=== PATIENT | female | born 1980 | race Caucasian/White ===

== ENCOUNTER 2017-01-25 06:03 | Day surgery (SDC) | payer OTHER ==
[2017-01-25] MEDS ORDERED: Lactated Ringers 1,000 ML IV ONE ×2 (07:06→08:22)
[2017-01-25] MEDS ORDERED: Lactated Ringers 1,000 ML IV SCH (07:30)
[2017-01-25] MEDS ORDERED: Ketamine HCl 50 MG/ML IJ ONE (08:00)
[2017-01-25] MEDS ORDERED: BREVIBLOC 100 MG/10 ML IV ONE (08:00)
[2017-01-25] MEDS ORDERED: DIPRIVAN 200 MG/20 ML IV ONE (08:00)
--- NOTE | 2017-01-25 08:46 | OP ---
SURGERY DATE/TIME: 01/25/2017 0748 PREOPERATIVE DIAGNOSIS: Rectal bleeding. POSTOPERATIVE DIAGNOSIS: Normal colon. PROCEDURE: Colonoscopy. SURGEON: Dr. Manuel. ANESTHESIA: Medications given by anesthesia department. HISTORY: The patient is a 36 year-old white female patient who reports she has been having problems with abdominal pain, rectal bleeding. The patient reports no significant change in bowel habits. She reports last time she had blood in the stool was two weeks ago. It was mixed in with the stool. The patient was felt the need to have endoscopic evaluation. She was appraised of the risks of the procedure including the risk of perforation, phlebitis, untoward reaction to medication, bleeding, and missed lesions. The patient verbalized her understanding and desired to have the procedure performed. DESCRIPTION OF PROCEDURE: The patient was given the medications by the anesthesia department. She had continuous pulse oximetry, ECG monitoring, intermittent blood pressure monitoring, and tidal CO2 monitoring during the examination. She was placed in the left lateral decubitus position. A digital rectal examination was performed and revealed normal anal sphincter tone and no masses, no hemorrhoids or fissures were felt. The flexible Olympus pediatric colonoscope was used to intubate the rectum. A view of the colon was developed sequentially to the cecum including a short distance into the terminal ileum. Upon insertion and withdrawal, including a retroflex view in the rectum, no mucosal lesions were encountered. The scope was removed from the patient who tolerated the procedure well and was sent back to OP recovery in good condition. The prep was noted to be good.
[2017-01-25 09:44] VITALS: O2SAT 99
[2017-01-25 09:46] VITALS: BP 122/69; PULSE 91
== END 2017-01-25 09:35 | disposition home or self-care (01) ==
LOC: SDC 06:03
PROVIDERS: ATTEND Family Medicine
PROC: 0DJD8ZZ Inspection of Lower Intestinal Tract, Via Natural or Artificial Opening Endoscopic (ICD-10-PCS; principal; 2017-01-25)
DX: K62.5 Hemorrhage of anus and rectum (principal)
CPT/HCPCS: 00810; 84703; J2704

== ENCOUNTER 2017-03-12 11:52 | Emergency (ER) | payer OTHER ==
[2017-03-12 12:07] VITALS: PULSE 78; O2SAT 99
--- NOTE | 2017-03-12 12:27 | ERPHSYRPT ---
- History of Present Illness Time Seen by Provider: 03/12/17 12:20 Source: patient Exam Limitations: no limitations Patient Subjective Stated Complaint: hx abnormal periods. scheduled for hyster on march 22 in [facility]. last wednesday began heavy vaginal bleeding and hasn't stopped. is feeling weak today. Triage Nursing Assessment: ambulated to room per self. skin w/d, normal color. resp nonlabored. states is going through a tampon every 20 minutes Physician History: The patient is a 36-year-old female with a friend complaining of very heavy menstrual bleeding for 5 days. The bleeding has worsened over the past 2 days. She is having to change her tampon about every 10-15 minutes over the last 2 days. During the night she woke up and changes it every hour. She is now weak and tired. She is scheduled for a hysterectomy due to uterine fibroids on March 22. She called her OB doctor and was told that he is not available today and to come to the nearest ER. Timing/Duration: day(s) (5) Activites at Onset: none Quality: cramping, other (bleeding) Onset Location: pelvic pain Pain Radiation: none Severity of Pain-Max: moderate Severity of Pain-Current: moderate Prior abdominal problems: none Sexual intercourse history: non-contributory Modifying Factors: Improves With: nothing Associated Symptoms: vaginal discharge (bleeding), No Allergies/Adverse Reactions: No Known Drug Allergies Allergy (Verified 03/12/17 12:07) Home Medications: Ferrous Sulfate 325 mg [Feosol 325 mg] 325 mg PO DAILY 01/21/17 [History] Hx Tetanus, Diphtheria Vaccination/Date Given: No Hx Influenza Vaccination/Date Given: Yes Hx Pneumococcal Vaccination/Date Given: No - Review of Systems Constitutional: Weakness, No Fever, No Chills Eyes: No Symptoms Ears, Nose, & Throat: No Symptoms Respiratory: No Cough, No Dyspnea Cardiac: No Chest Pain, No Edema, No Syncope Abdominal/Gastrointestinal: Abdominal Pain (cramping) Genitourinary Symptoms: Vaginal Bleeding Musculoskeletal: No Back Pain, No Neck Pain Skin: No Rash Neurological: No Dizziness, No Focal Weakness, No Sensory Changes Psychological: No Symptoms Endocrine: No Symptoms Hematologic/Lymphatic: No Symptoms Immunological/Allergic: No Symptoms All Other Systems: Reviewed and Negative - Past Medical History Pertinent Past Medical History: Yes Neurological History: No Pertinent History ENT History: No Pertinent History Cardiac History: Other Respiratory History: No Pertinent History Endocrine Medical History: No Pertinent History Musculoskeletal History: No Pertinent History GI Medical History: No Pertinent History History: Other Psycho-Social History: Anxiety Female Reproductive Disorders: Abnormal Uterine Bleeding Other Medical History: kidney stones - Past Surgical History Past Surgical History: Yes Neuro Surgical History: No Pertinent History Cardiac: No Pertinent History Respiratory: No Pertinent History Gastrointestinal: No Pertinent History Genitourinary: Other Musculoskeletal: Orthopedic Surgery Female Surgical History: Other Other Surgical History: kidney stones removed, surgery to right leg - Social History Smoking Status: Never smoker Exposure to second hand smoke: No Drug Use: none Patient Lives Alone: No - Female History Hx Now: No - Nursing Vital Signs Nursing Vital Signs: Initial Vital Signs Temperature 98 F Temperature Source Oral Pulse Rate 78 Respiratory Rate 16 Blood Pressure [Right Arm] 137/83 Pain Intensity 0 - Physical Exam General Appearance: mild distress Eye Exam: PERRL/EOMI, eyes nml inspection Ears, Nose, Throat Exam: normal ENT inspection, TMs normal, pharynx normal, moist mucous membranes Neck Exam: normal inspection, non-tender, supple, full range of motion Respiratory Exam: normal breath sounds, lungs clear, No respiratory distress Cardiovascular Exam: regular rate/rhythm, normal heart sounds, normal peripheral pulses Gastrointestinal/Abdomen Exam: tenderness Rectal Exam: not done Back Exam: normal inspection, normal range of motion, No CVA tenderness, No vertebral tenderness Extremity Exam: normal inspection, normal range of motion, pelvis stable Neurologic Exam: alert, oriented x 3, cooperative, side seam tender II-XII nml as tested, normal mood/affect, sensation nml, No motor deficits Skin Exam: normal color, warm, dry Lymphatic Exam: No adenopathy SpO2 Interpretation: normal SpO2: 99 Oxygen Delivery: Room Air Ordered Tests: Active Orders 24 hr Category Date Time Status IV Insertion STAT Care 03/12/17 12:31 Active CBC W DIFF Stat Lab 03/12/17 12:50 Completed CMP Stat Lab 03/12/17 12:50 Completed HCG QUALITATIVE,SERUM Stat Lab 03/12/17 12:50 Completed PROTIME WITH INR Stat Lab 03/12/17 12:50 Completed Medication Summary Generic Name Dose Route Start Last Admin Trade Name Freq PRN Reason Stop Dose Admin Sodium Chloride 1,000 mls @ 100 mls/hr 03/12/17 12:45 03/12/17 12:57 Sodium Chloride 0.9% 1000 Ml IV 04/11/17 12:44 100 mls/hr .Q10H JIAN Administration Lab/Rad Data: Laboratory Result Diagrams 03/12/17 12:50 03/12/17 12:50 Laboratory Results 03/12/17 03/12/17 03/12/17 Range/Units 12:50 12:50 12:50 WBC (4.0-10.5) K/mm3 RBC (4.1-5.4) M/mm3 Hgb (12.0-16.0) gm/dl Hct (35-47) % MCV (78-100) fl MCH (26-32) pg MCHC (32-36) g/dl RDW (11.5-14.0) % Plt Count (150-450) K/mm3 MPV (6-9.5) fl Gran % (36.0-66.0) % Lymphocytes % (24.0-44.0) % Monocytes % (0.0-12.0) % Eosinophils % (0.00-5.0) % Basophils % (0.0-0.4) % Basophils # (0-0.4) INR 1.04 (0.8-3.0) Sodium (136-145) mEq/L Potassium (3.5-5.1) mEq/L Chloride (98-107) mEq/L Carbon Dioxide (21-32) mEq/L Anion Gap (5-15) MEQ/L BUN (9-20) mg/dL Creatinine (0.55-1.30) mg/dl Estimated GFR ML/MIN Glucose (70-110) MG/DL Calcium (8.5-10.1) mg/dL Total Bilirubin (0.2-1.0) mg/dL AST (15-37) U/L ALT (12-78) U/L Alkaline Phosphatase (46-116) U/L Serum Total Protein (6.4-8.2) gm/dL Albumin (3.4-5.0) g/dL Serum , Qual NEGATIVE (Negative) ABO Group O Rh Factor NEGATIVE Antibody Screen NEGATIVE (NEGATIVE) 03/12/17 03/12/17 Range/Units 12:50 12:50 WBC 7.8 (4.0-10.5) K/mm3 RBC 4.44 (4.1-5.4) M/mm3 Hgb 11.1 L (12.0-16.0) gm/dl Hct 35.0 (35-47) % MCV 78.8 (78-100) fl MCH 25.0 L (26-32) pg MCHC 31.7 L (32-36) g/dl RDW 20.7 H (11.5-14.0) % Plt Count 242 (150-450) K/mm3 MPV 9.9 H (6-9.5) fl Gran % 60.4 (36.0-66.0) % Lymphocytes % 30.1 (24.0-44.0) % Monocytes % 7.8 (0.0-12.0) % Eosinophils % 1.4 (0.00-5.0) % Basophils % 0.3 (0.0-0.4) % Basophils # 0.02 (0-0.4) INR (0.8-3.0) Sodium 139 (136-145) mEq/L Potassium 3.7 (3.5-5.1) mEq/L Chloride 107 (98-107) mEq/L Carbon Dioxide 21.5 (21-32) mEq/L Anion Gap 14.6 (5-15) MEQ/L BUN 11 (9-20) mg/dL Creatinine 0.92 (0.55-1.30) mg/dl Estimated GFR > 60 ML/MIN Glucose 83 (70-110) MG/DL Calcium 8.9 (8.5-10.1) mg/dL Total Bilirubin 0.10 L (0.2-1.0) mg/dL AST 15 (15-37) U/L ALT 16 (12-78) U/L Alkaline Phosphatase 69 (46-116) U/L Serum Total Protein 7.0 (6.4-8.2) gm/dL Albumin 3.5 (3.4-5.0) g/dL Serum , Qual (Negative) ABO Group Rh Factor Antibody Screen (NEGATIVE) - Progress Progress: improved Air Movement: good Progress Note: 03/12/17 14:50 I discussed the patient with Dr. Mejia who recommended the patient be transferred to [facility] for further evaluation. I then spoke with Dr. Vázquez at [facility] who was taking call for Dr. Robles, the patient's hearing therapy director. Dr. Vázquez had switched and was not health information manager. I then spoke with Dr. Rae who provides pertinent information on the patient. The patient was examined on March 03 and was found to have Trichomonas. The patient had not been advised of the infection. The doctor would like her treated with Flagyl 500 mg twice a day for 7 days, as well as treating her partner. The doctor also advised to give her Provera 10 mg daily. She will call the office next week. Blood Culture(s) Obtained: No Antibiotics given: No Counseled pt/family regarding: lab results, diagnosis, need for follow-up - Departure Time of Disposition: 14:53 Departure Disposition: Home Clinical Impression: Vaginal bleeding, abnormal, Trichomonas infection Condition: Stable Critical Care Time: No Additional Instructions: You have abnormal vaginal bleeding. After speaking with Dr. Rae at [facility], you were found to have a Trichomonas infection after last exam on March 03. You are to take Flagyl 500 mg twice a day for 7 days. You need to discuss the trichomonas infection with your sexual partner. Your partner should also be treated before you resume sexual activity. Take Provera 10 mg daily. If her condition worsens, either return to the ER or contact your hearing therapy director. Prescriptions: Medroxyprogesterone Acet [[id number] mg] 10 mg PO DAILY #30 tablet Metronidazole 500 mg [Flagyl 500 MG] 500 mg PO BID #14 tablet
[2017-03-12] MEDS ORDERED: Sodium Chloride 0.9% 1000 ML 1,000 ML IV SCH (12:45)
[2017-03-12] MEDS ORDERED: Sodium Chloride 0.9% 1000 ML 1,000 ML ONE (12:48)
[2017-03-12 13:08] LABS: BASOPHIL % 0.3 % (0.0-0.4); Eosinophil % 1.4 % (0.00-5.0); Granulocytes % 60.4 % (36.0-66.0); Lymphocytes % 30.1 % (24.0-44.0); Mean Cell Volume 78.8 fl (78-100); Mean Platelet Volume 9.9 fl (6-9.5); Monocytes % 7.8 % (0.0-12.0); Platelet Count 242 K/mm3 (150-450); Red Blood Count 4.44 M/mm3 (4.1-5.4); Red Cell Distribution Width 20.7 % (11.5-14.0); White Blood Count 7.8 K/mm3 (4.0-10.5)
[2017-03-12 13:24] LABS: INR 1.04 (0.8-3.0); PROTIME 11.8 SECONDS (9.95-12.35)
[2017-03-12 13:31] LABS: ALBUMIN 3.5 g/dL (3.4-5.0); ALKALINE PHOSPHATASE 69 U/L (46-116); ANION GAP 14.6 MEQ/L (5-15); BLOOD UREA NITROGEN 11 mg/dL (9-20); CHLORIDE 107 mEq/L (98-107); Carbon Dioxide 21.5 mEq/L (21-32); Glucose 83 MG/DL (70-110); Potassium 3.7 mEq/L (3.5-5.1); SGOT/AST 15 U/L (15-37); SGPT/ALT 16 U/L (12-78); SODIUM 139 mEq/L (136-145)
[2017-03-12 14:48] VITALS: BP 118/78
== END 2017-03-12 15:14 | disposition home or self-care (01) ==
LOC: ED 11:52
DX: N93.9 Abnormal uterine and vaginal bleeding, unspecified (principal); A59.9 Trichomoniasis, unspecified
CPT/HCPCS: 36000; 36415; 80053; 84703; 85025; 85610; 86850; 86900; 86901; 96360; 96361; 99284

== ENCOUNTER 2017-03-29 04:15 | Emergency (ER) | payer OTHER ==
[2017-03-29] MEDS ORDERED: Sodium Chloride 0.9% 1000 ML 1,000 ML IV STA ×2 (04:31→05:57)
[2017-03-29] MEDS ORDERED: TORAdol 30 mg Injection IV ONE (04:33)
--- NOTE | 2017-03-29 04:38 | ERPHSYRPT ---
- History of Present Illness Time Seen by Provider: 03/29/17 04:33 Source: patient Exam Limitations: no limitations Physician History: 36-year-old white female status post laparoscopic hysterectomy 1 week ago arrives with complaint of pain in the right flank worse with breathing which feels like "a catch" symptoms since midnight. Patient without nausea no vomiting no fevers at home no urinary symptoms she has had an occasional cough since surgery. Past medical history includes anxiety abnormal uterine bleeding kidney stones Past surgical history includes laparoscopic cholecystectomy Timing/Duration: today Severity: moderate Modifying Factors: Improves With: nothing Associated Symptoms: cough, other (pain right flank), No nausea, No vomiting, No abdominal pain, No shortness of breath, No heartburn, No diaphoresis, No chills, No chest pain, No fever, No headaches, No loss of appetite, No malaise, No syncope, No seizure, No weakness Allergies/Adverse Reactions: No Known Drug Allergies Allergy (Verified 03/29/17 04:42) Hx Tetanus, Diphtheria Vaccination/Date Given: No Hx Influenza Vaccination/Date Given: Yes Hx Pneumococcal Vaccination/Date Given: No - Review of Systems Constitutional: No Fever, No Chills Eyes: No Symptoms Ears, Nose, & Throat: No Symptoms Respiratory: Cough, No Dyspnea Cardiac: No Chest Pain, No Edema, No Syncope Abdominal/Gastrointestinal: No Abdominal Pain, No Nausea, No Vomiting, No Diarrhea Genitourinary Symptoms: Flank Pain (right flank pain) Musculoskeletal: Back Pain (right flank pain) Skin: No Rash Neurological: No Dizziness, No Focal Weakness, No Sensory Changes Psychological: No Symptoms Endocrine: No Symptoms All Other Systems: Reviewed and Negative - Past Medical History Pertinent Past Medical History: Yes Neurological History: No Pertinent History ENT History: No Pertinent History Cardiac History: Other Respiratory History: No Pertinent History Endocrine Medical History: No Pertinent History Musculoskeletal History: No Pertinent History GI Medical History: No Pertinent History History: Other Psycho-Social History: Anxiety Female Reproductive Disorders: Abnormal Uterine Bleeding Other Medical History: kidney stones - Past Surgical History Past Surgical History: Yes Neuro Surgical History: No Pertinent History Cardiac: No Pertinent History Respiratory: No Pertinent History Gastrointestinal: No Pertinent History Genitourinary: Other Musculoskeletal: Orthopedic Surgery Female Surgical History: Other Other Surgical History: kidney stones removed, surgery to right leg - Social History Smoking Status: Never smoker Exposure to second hand smoke: No Drug Use: none Patient Lives Alone: No - Female History Hx Now: No - Nursing Vital Signs Nursing Vital Signs: Initial Vital Signs Temperature 99.2 F Temperature Source Oral Pulse Rate 108 Respiratory Rate 16 Blood Pressure [] 136/78 Pain Intensity 6 - Physical Exam General Appearance: mild distress Eye Exam: PERRL/EOMI, eyes nml inspection Ears, Nose, Throat Exam: normal ENT inspection, TMs normal, pharynx normal, moist mucous membranes Neck Exam: normal inspection, non-tender, supple, full range of motion Respiratory Exam: normal breath sounds, lungs clear, No respiratory distress Cardiovascular Exam: regular rate/rhythm, normal heart sounds, normal peripheral pulses Gastrointestinal/Abdomen Exam: soft, normal bowel sounds, No tenderness, No mass Back Exam: normal range of motion, CVA tenderness Extremity Exam: normal inspection, normal range of motion, pelvis stable Neurologic Exam: alert, oriented x 3, cooperative, normal mood/affect, nml cerebellar function, nml station & gait, sensation nml, No motor deficits Skin Exam: normal color, warm, dry, No rash Lymphatic Exam: No adenopathy SpO2 Interpretation: normal (100%) SpO2: 100 Oxygen Delivery: Room Air - Course Nursing assessment & vital signs reviewed: Yes - Radiology Exams Chest X-ray Interpretation: Interpreted by me, No Pneumonia, No Pneumothorax, Other ( no acute disease process noted) - CT Exams Chest CT Interpretation: Tele-radiologist Report (chest CT with contrast: Normal chest cta. No pulmonary embolism no acute fracture.) Ordered Tests: Active Orders 24 hr Category Date Time Status Clean Catch Urine Specimen STAT Care 03/29/17 04:43 Active IV Insertion STAT Care 03/29/17 04:31 Active CHEST 1 VIEW (PORTABLE) Stat Exams 03/29/17 04:31 Taken CHEST WITH CONTRAST [CT] Stat Exams 03/29/17 05:11 Taken AMYLASE Stat Lab 03/29/17 04:40 Completed BLOOD CULTURE Stat Lab 03/29/17 04:31 Received CBC W DIFF Stat Lab 03/29/17 04:40 Completed CMP Stat Lab 03/29/17 04:40 Completed CULTURE,URINE Stat Lab 03/29/17 04:40 Received D-DIMER QUANTITATION Stat Lab 03/29/17 04:40 Completed LIPASE Stat Lab 03/29/17 04:40 Completed UA W/ MICROSCOPIC Stat Lab 03/29/17 04:40 Completed Medication Summary Generic Name Dose Route Start Last Admin Trade Name Freq PRN Reason Stop Dose Admin Sodium Chloride 1,000 mls @ 999 mls/hr 03/29/17 05:57 03/29/17 06:05 Sodium Chloride 0.9% 1000 Ml IV 03/29/17 06:57 999 mls/hr .Q1H1M STA Administration Ceftriaxone Sodium/Dextrose 1 g in 50 mls @ 100 mls/hr 03/29/17 06:12 06:15 Rocephin 1 Gm-D5w 50 Ml Bag IV 03/29/17 06:41 100 mls/hr STAT STA Administration Discontinued Medications Generic Name Dose Route Start Last Admin Trade Name Freq PRN Reason Stop Dose Admin Hydrocodone Bitart/Acetaminophen 1 tab 03/29/17 05:57 03/29/17 06:04 [place] 5/325 Mg PO 03/29/17 05:58 1 tab STAT ONE Administration Hydrocodone Bitart/Acetaminophen Confirm 03/29/17 06:02 [place] 5/325 Mg Administered 03/29/17 06:03 Dose 1 tab .ROUTE .STK-MED ONE Sodium Chloride 1,000 mls @ 999 mls/hr 03/29/17 04:31 03/29/17 04:42 Sodium Chloride 0.9% 1000 Ml IV 03/29/17 05:31 999 mls/hr .Q1H1M STA Administration Sodium Chloride Confirm 03/29/17 04:41 Sodium Chloride 0.9% 1000 Ml Administered 03/29/17 04:42 Dose 1,000 mls @ ud .ROUTE .STK-MED ONE Sodium Chloride Confirm 03/29/17 06:02 Sodium Chloride 0.9% 1000 Ml Administered 03/29/17 06:03 Dose 1,000 mls @ ud .ROUTE .STK-MED ONE Ceftriaxone Sodium/Dextrose Confirm 03/29/17 06:14 Rocephin 1 Gm-D5w 50 Ml Bag Administered 03/29/17 06:15 Dose 1 g in 50 mls @ ud IV .STK-MED ONE Ketorolac Tromethamine 30 mg 03/29/17 04:33 03/29/17 04:43 Toradol 30 Mg Injection IV 03/29/17 04:34 30 mg STAT ONE Administration Ketorolac Tromethamine Confirm 03/29/17 04:41 Toradol 30 Mg Injection Administered 03/29/17 04:42 Dose 30 mg .ROUTE .STK-MED ONE Lab/Rad Data: Laboratory Result Diagrams 03/29/17 04:40 03/29/17 04:40 Laboratory Results 03/29/17 03/29/17 03/29/17 Range/Units 04:40 04:40 04:40 WBC 12.0 H (4.0-10.5) K/mm3 RBC 4.75 (4.1-5.4) M/mm3 Hgb 12.2 (12.0-16.0) gm/dl Hct 38.5 (35-47) % MCV 81.1 (78-100) fl MCH 25.7 L (26-32) pg MCHC 31.7 L (32-36) g/dl RDW 18.7 H (11.5-14.0) % Plt Count 298 (150-450) K/mm3 MPV 9.7 H (6-9.5) fl Gran % 72.6 H (36.0-66.0) % Lymphocytes % 17.3 L (24.0-44.0) % Monocytes % 7.9 (0.0-12.0) % Eosinophils % 1.9 (0.00-5.0) % Basophils % 0.3 (0.0-0.4) % Basophils # 0.04 (0-0.4) D-Dimer 1263.02 H* (0.00-500.00) ng/mL Sodium 140 (136-145) mEq/L Potassium 3.8 (3.5-5.1) mEq/L Chloride 104 (98-107) mEq/L Carbon Dioxide 24.2 (21-32) mEq/L Anion Gap 15.7 H (5-15) MEQ/L BUN 11 (9-20) mg/dL Creatinine 0.98 (0.55-1.30) mg/dl Estimated GFR > 60 ML/MIN Glucose 106 (70-110) MG/DL Calcium 9.2 (8.5-10.1) mg/dL Total Bilirubin 0.40 (0.2-1.0) mg/dL AST 15 (15-37) U/L ALT 18 (12-78) U/L Alkaline Phosphatase 76 (46-116) U/L Serum Total Protein 7.9 (6.4-8.2) gm/dL Albumin 3.7 (3.4-5.0) g/dL Amylase 60 (25-115) U/L Lipase 134 (73-393) U/L Ur Collection Type Urine Color (YELLOW) Urine Appearance (CLEAR) Urine pH (5-6) Ur Specific [place] (1.005-1.025) Urine Protein (Negative) Urine Ketones (NEGATIVE) Urine Blood (0-5) Sean/ul Urine Nitrite (NEGATIVE) Urine Bilirubin (NEGATIVE) Urine Urobilinogen (0-1) mg/dL Ur Leukocyte Esterase (NEGATIVE) Urine Microscopic RBC (0-2) /HPF Urine Microscopic WBC (0-5) /HPF Ur Epithelial Cells (FEW) /HPF Urine Bacteria (NEGATIVE) /HPF Urine Mucus (NEGATIVE) /HPF Urine Glucose (NEGATIVE) mg/dL Specimen Received 03/29/17 Range/Units 04:40 WBC (4.0-10.5) K/mm3 RBC (4.1-5.4) M/mm3 Hgb (12.0-16.0) gm/dl Hct (35-47) % MCV (78-100) fl MCH (26-32) pg MCHC (32-36) g/dl RDW (11.5-14.0) % Plt Count (150-450) K/mm3 MPV (6-9.5) fl Gran % (36.0-66.0) % Lymphocytes % (24.0-44.0) % Monocytes % (0.0-12.0) % Eosinophils % (0.00-5.0) % Basophils % (0.0-0.4) % Basophils # (0-0.4) D-Dimer (0.00-500.00) ng/mL Sodium (136-145) mEq/L Potassium (3.5-5.1) mEq/L Chloride (98-107) mEq/L Carbon Dioxide (21-32) mEq/L Anion Gap (5-15) MEQ/L BUN (9-20) mg/dL Creatinine (0.55-1.30) mg/dl Estimated GFR ML/MIN Glucose (70-110) MG/DL Calcium (8.5-10.1) mg/dL Total Bilirubin (0.2-1.0) mg/dL AST (15-37) U/L ALT (12-78) U/L Alkaline Phosphatase (46-116) U/L Serum Total Protein (6.4-8.2) gm/dL Albumin (3.4-5.0) g/dL Amylase (25-115) U/L Lipase (73-393) U/L Ur Collection Type CLEAN CATCH Urine Color YELLOW (YELLOW) Urine Appearance CLEAR (CLEAR) Urine pH 5.0 (5-6) Ur Specific [place] 1.025 (1.005-1.025) Urine Protein NEGATIVE (Negative) Urine Ketones NEGATIVE (NEGATIVE) Urine Blood TRACE NON-HEM (0-5) Sean/ul Urine Nitrite NEGATIVE (NEGATIVE) Urine Bilirubin NEGATIVE (NEGATIVE) Urine Urobilinogen NORMAL (0-1) mg/dL Ur Leukocyte Esterase 1+ (NEGATIVE) Urine Microscopic RBC 0-2 (0-2) /HPF Urine Microscopic WBC 2-5 (0-5) /HPF Ur Epithelial Cells MODERATE (FEW) /HPF Urine Bacteria RARE (NEGATIVE) /HPF Urine Mucus SLIGHT (NEGATIVE) /HPF Urine Glucose NEGATIVE (NEGATIVE) mg/dL Specimen Received 03/29/17:0440 - Progress Progress: improved Progress Note: 03/29/17 04:36 36-year-old white female status post laparoscopic hysterectomy 1 week ago with complaint of right flank pain described as "a catch" no vomiting no diarrhea no urinary symptoms positive cough. Pain is worse with breathing and moving. Patient is noted to have a fever here in the emergency room she did not know she had one at home. Will go ahead and obtain CBC CMP amylase lipase UA chest x-ray d-dimer. I've offered the patient morphine for pain she states she really doesn't want this will go ahead and give her Toradol 30 mg IV normal saline 1 L. Will obtain blood and urine cultures 03/29/17 06:12 Chest x-ray: Normal CTA no pulmonary embolism no acute fracture. Patient did have an elevated white count and fever as well as a cough pain in the right lower posterior chest. Will go ahead and give patient Rocephin 1 g IV cultures have been obtained we' ll plan sending the patient home with Zithromax and [place]. 03/29/17 06:42 I had written a prescription for [place] No. 15 5/325 tablets for this patient however the patient apparently has [place] at home therefore canceled the prescription, and was prescription has been torn up . - Departure Time of Disposition: 06:45 Departure Disposition: Home Clinical Impression: Bronchitis, Pleurisy Condition: Fair Critical Care Time: No Referrals: KARTHIK LUGO MD [Primary Care Provider] - Additional Instructions: Return home. Plenty of fluids. Zithromax Z-JEREMY as directed. [place] as prescribed by your family doctor/ surgeon. Follow-up with your family doctor. Return for acute distress or for severe symptoms. Prescriptions: Azithromycin 250 mg [Zithromax 250 MG TABLET] 0 mg PO ZPACK #6 tablet
[2017-03-29] MEDS ORDERED: TORAdol 30 mg Injection ONE (04:41)
[2017-03-29] MEDS ORDERED: Sodium Chloride 0.9% 1000 ML 1,000 ML ONE ×2 (04:41→06:02)
[2017-03-29 04:57] LABS: BASOPHIL % 0.3 % (0.0-0.4); Eosinophil % 1.9 % (0.00-5.0); Granulocytes % 72.6 % (36.0-66.0); Lymphocytes % 17.3 % (24.0-44.0); Mean Cell Volume 81.1 fl (78-100); Mean Corpuscular Hemoglobin 25.7 pg (26-32); Mean Platelet Volume 9.7 fl (6-9.5); Monocytes % 7.9 % (0.0-12.0); Platelet Count 298 K/mm3 (150-450); Red Blood Count 4.75 M/mm3 (4.1-5.4); Red Cell Distribution Width 18.7 % (11.5-14.0)
[2017-03-29 05:01] LABS: ADD URINE CULTURE? YES (NO); Bacteria RARE /HPF (NEGATIVE); Bilirubin NEGATIVE (NEGATIVE); Blood TRACE NON-HEM Ery/ul (0-5); COMPLETE URINE MICROSCOPIC? YES; Collection Type CLEAN CATCH; Epithelial Cells MODERATE /HPF (FEW); Glucose NEGATIVE (NEGATIVE); Leukocyte Esterase 1+ (NEGATIVE); Mucus SLIGHT /HPF (NEGATIVE)
[2017-03-29 05:08] LABS: ALBUMIN 3.7 g/dL (3.4-5.0); ALKALINE PHOSPHATASE 76 U/L (46-116); ANION GAP 15.7 MEQ/L (5-15); BLOOD UREA NITROGEN 11 mg/dL (9-20); CHLORIDE 104 mEq/L (98-107); Carbon Dioxide 24.2 mEq/L (21-32); Glucose 106 MG/DL (70-110); LIPASE 134 U/L (73-393); Potassium 3.8 mEq/L (3.5-5.1); SGOT/AST 15 U/L (15-37); SGPT/ALT 18 U/L (12-78); SODIUM 140 mEq/L (136-145); Total Protein 7.9 gm/dL (6.4-8.2)
[2017-03-29] MEDS ORDERED: NORCO 5/325 MG PO ONE (05:57)
[2017-03-29] MEDS ORDERED: NORCO 5/325 MG ONE (06:02)
[2017-03-29] MEDS ORDERED: ROCEPHIN 1 Gm-D5w 50 ml Bag** 1 G/50 ML IVPB IV STA (06:12)
[2017-03-29] MEDS ORDERED: ROCEPHIN 1 Gm-D5w 50 ml Bag** 1 G/50 ML IVPB IV ONE (06:14)
[2017-03-29 06:57] VITALS: BP 119/64; PULSE 89; O2SAT 98
--- NOTE | 2017-03-29 09:18 | XRAY ---
Indication: Cough. Right lower chest/rib pain. Elevated d-dimer. Status post hysterectomy. Multiple contiguous axial images obtained through the chest using 80 cc Isovue 370 contrast and PE protocol. Comparison: None There is satisfactory opacification of the pulmonary arteries to include the lobar and segmental branches. No filling defect or pulmonary embolus. Heart is not enlarged. Aorta is normal in course and caliber. Small left hilar calcified nodes. No pathologic mediastinal/hilar lymphadenopathy. Small hiatal hernia. Examination of the lung parenchyma demonstrates minimal bibasilar dependent atelectasis. No suspicious pulmonary mass, infiltrate, consolidation, or effusion. Bony thorax intact. Limited upper abdomen including adrenal glands unremarkable. Impression: Negative for pulmonary embolus. No acute cardiopulmonary abnormalities. Small hiatal hernia. Comment: Preliminary interpretation was made by [facility]. No critical discrepancy. CT DI 13.49
--- NOTE | 2017-03-29 09:18 | XRAY ---
Indication: Pain and fever. Comparison: None Portable chest demonstrates normal heart, lungs, and bony thorax.
== END 2017-03-29 06:56 | disposition home or self-care (01) ==
LOC: ED 04:15
DX: J40 Bronchitis, not specified as acute or chronic (principal); R09.1 Pleurisy; Z98.890 Other specified postprocedural states; R10.9 Unspecified abdominal pain
CPT/HCPCS: 36000; 36415; 71010; 71260; 80053; 81000; 82150; 83690; 85025; 85379; 87040; 87086; 96360; 96361; 96365; 96374; 99283; J0696; J1885; A9270-GY